=== PATIENT | male | born 1965 | race Caucasian/White ===

== ENCOUNTER 2017-12-23 13:22 | Inpatient (IN) | payer OTHER ==
[~2017-12-23] VITALS: Ht 185.4 cm; Wt 137.0 kg
[2017-12-23 13:32] VITALS: Ht 185.4 cm; Wt 137.0 kg
[2017-12-23 16:33] LABS: RED CELL DISTRIBUTION WIDTH 13.4 % (11.5-14.5)
[2017-12-23 16:38] LABS: CALCIUM 7.6 mg/dL (8.5-10.1); CARBON DIOXIDE 27.9 mmol/L (21-32); CHLORIDE SERUM 96 mmol/L (98-107); CREATININE SERUM 0.9 mg/dL (0.7-1.3); GFR1 > 60 mL/min; GLUCOSE SERUM 299 mg/dL (74-106); POTASSIUM SERUM 3.2 mmol/L (3.5-5.1); SODIUM SERUM 133 mmol/L (136-145)
[2017-12-23 16:47] LABS: PLATELET COUNT 522 x10^3mcL (130-400)
[2017-12-23 16:49] LABS: ALKALINE PHOSPHATASE 124 U/L (46-116); ALT/SGPT 10 U/L (16-63); AST/SGOT 20 U/L (15-37); BILIRUBIN TOTAL 0.9 mg/dL (0.20-1.00)
[2017-12-23 16:50] LABS: CK-MB < 0.5 ng/mL (0-3.6); CREATINE KINASE 23 U/L (39-308)
[2017-12-23 16:51] LABS: FREE T4 1.27 ng/dL (0.76-1.46); T4(THYROXINE) 5.5 ug/dL (4.7-13.3)
[2017-12-23 16:58] LABS: ALBUMIN 1.5 g/dL (3.4-5.0); TOTAL PROTEIN, SERUM 6.1 g/dL (6.4-8.2)
[2017-12-23 17:01] LABS: T3 TOTAL 0.7 ng/mL
[2017-12-23 17:05] LABS: BAND NEUTROPHIL 3 % (0-10); BASOPHIL 0 % (0-2); MONOCYTE 7 % (0-7); SEGMENTED NEUTROPHILS 82 % (37-75)
[2017-12-23 17:06] LABS: rbc morphology (normal/abnorm) ABNORMAL (NORMAL)
[2017-12-23 17:09] LABS: C REACTIVE PROTEIN 19.7 mg/dL (<=0.9)
[2017-12-23 17:19] LABS: ERYTHROCYTE SED RATE 103 mm/hr (0-20)
[2017-12-23 19:47] VITALS: BP 132/83
[2017-12-23 20:03] LABS: PHOSPHOROUS 2.5 mg/dL (2.5-4.9)
[2017-12-23 20:04] LABS: CHOLESTEROL/HDL RATIO 4.9
[2017-12-23] MEDS ORDERED: GLU500 PO (23:02)
[2017-12-23] MEDS ORDERED: GLUCOTROL5 MG PO (23:03)
[2017-12-23] MEDS ORDERED: LISINOPRIL20 MG PO (23:04)
[2017-12-23 23:52] LABS: microscopic required? YES; urine erythrocyte TRACE (NEGATIVE)
[2017-12-24 00:05] LABS: AMPHETAMINE QUAL UR NONE DETECTED (See below)
[2017-12-24 05:23] VITALS: BP 140/77
[2017-12-24 07:22] LABS: BASOPHIL % 0.2 % (0-2); RED CELL DISTRIBUTION WIDTH 14.1 % (11.5-14.5)
[2017-12-24 07:30] LABS: PLATELET COUNT 544 x10^3mcL (130-400)
[2017-12-24 08:18] LABS: CALCIUM 8.3 mg/dL (8.5-10.1); CHLORIDE SERUM 100 mmol/L (98-107); CREATININE SERUM 0.8 mg/dL (0.7-1.3); GFR1 > 60 mL/min; GLUCOSE SERUM 180 mg/dL (74-106); POTASSIUM SERUM 3.2 mmol/L (3.5-5.1); SODIUM SERUM 135 mmol/L (136-145)
[2017-12-24 08:41] LABS: BAND NEUTROPHIL 4 % (0-10); BASOPHIL 0 % (0-2); MONOCYTE 7 % (0-7); SEGMENTED NEUTROPHILS 78 % (37-75)
[2017-12-24 08:42] LABS: PLATELET MORPHOLOGY PLATELETS INCREASED; rbc morphology (normal/abnorm) ABNORMAL (NORMAL)
[2017-12-24 09:46] VITALS: BP 140/75
[2017-12-24 13:37] VITALS: BP 140/77
[2017-12-24 17:36] VITALS: BP 160/81
[2017-12-24 21:25] VITALS: BP 132/72
[2017-12-25 05:41] LABS: RED CELL DISTRIBUTION WIDTH 13.5 % (11.5-14.5)
[2017-12-25 05:48] VITALS: BP 129/73
[2017-12-25 06:08] LABS: CALCIUM 7.5 mg/dL (8.5-10.1); CARBON DIOXIDE 28.5 mmol/L (21-32); CHLORIDE SERUM 100 mmol/L (98-107); CREATININE SERUM 0.9 mg/dL (0.7-1.3); GFR1 > 60 mL/min; GLUCOSE SERUM 224 mg/dL (74-106); MAGNESIUM 1.6 mg/dL (1.8-2.4); PHOSPHOROUS 3.7 mg/dL (2.5-4.9); SODIUM SERUM 133 mmol/L (136-145)
[2017-12-25 07:24] LABS: PLATELET COUNT 531 x10^3mcL (130-400)
[2017-12-25 09:45] VITALS: BP 122/59
[2017-12-25 13:51] VITALS: BP 140/71
[2017-12-25 18:21] VITALS: BP 157/72
[2017-12-25 18:34] LABS: BAND NEUTROPHIL 4 % (0-10); SEGMENTED NEUTROPHILS 78 % (37-75)
[2017-12-25 18:35] LABS: MONOCYTE 5 % (0-7); PLATELET MORPHOLOGY LARGE PLATELET SEEN; rbc morphology (normal/abnorm) NORMAL (NORMAL)
[2017-12-25 20:44] VITALS: BP 148/59
[2017-12-26 05:45] VITALS: BP 140/86
[2017-12-26 08:41] LABS: RED CELL DISTRIBUTION WIDTH 13.7 % (11.5-14.5)
[2017-12-26 08:49] LABS: PLATELET COUNT 543 x10^3mcL (130-400)
[2017-12-26 09:10] LABS: CALCIUM 7.9 mg/dL (8.5-10.1); CARBON DIOXIDE 28.9 mmol/L (21-32); CHLORIDE SERUM 98 mmol/L (98-107); GFR1 > 60 mL/min; GLUCOSE SERUM 276 mg/dL (74-106); MAGNESIUM 1.6 mg/dL (1.8-2.4); POTASSIUM SERUM 3.6 mmol/L (3.5-5.1); SODIUM SERUM 133 mmol/L (136-145)
[2017-12-26 09:19] LABS: ATYPICAL LYMPH 1 %; BAND NEUTROPHIL 1 % (0-10); MONOCYTE 2 % (0-7); SEGMENTED NEUTROPHILS 91 % (37-75)
[2017-12-26 09:20] LABS: rbc morphology (normal/abnorm) ABNORMAL (NORMAL)
[2017-12-26 10:18] VITALS: BP 144/79
[2017-12-26] MEDS ORDERED: AUGMENTIN 875-1 EACH PO (12:24)
[2017-12-26] MEDS ORDERED: BACTRIM DS1 TAB PO (12:26)
[2017-12-26] MEDS ORDERED: ZESTRIL20 MG PO (12:27)
[2017-12-26] MEDS ORDERED: APAP/HYDROCODON1 T13 PO (12:49)
[2017-12-26] MEDS ORDERED: METFORMIN500 M1 GT (12:52)
== END 2017-12-26 13:50 | disposition left against medical advice (07) | DRG 871 ==
LOC: ED 13:22 → DU 18:36
PROVIDERS: Family Medicine; Specialist
PROC: 0J993ZZ Drainage of Buttock Subcutaneous Tissue and Fascia, Percutaneous Approach (ICD-10-PCS; principal; 2017-12-24)
DX: A41.9 Sepsis, unspecified organism (principal); N17.0 Acute kidney failure with tubular necrosis; E43 Unspecified severe protein-calorie malnutrition; L02.31 Cutaneous abscess of buttock; D68.59 Other primary thrombophilia; E87.3 Alkalosis; E87.1 Hypo-osmolality and hyponatremia; R65.20 Severe sepsis without septic shock; E11.65 Type 2 diabetes mellitus with hyperglycemia; Z79.84 Long term (current) use of oral hypoglycemic drugs; E86.0 Dehydration; E87.8 Other disorders of electrolyte and fluid balance, not elsewhere classified; E87.6 Hypokalemia; I10 Essential (primary) hypertension; R58 Hemorrhage, not elsewhere classified; Z68.39 Body mass index [BMI] 39.0-39.9, adult; D47.3 Essential (hemorrhagic) thrombocythemia; D64.9 Anemia, unspecified
CPT/HCPCS: 20206; 36600; 82962; 83880; 84439; C1729; C9113; J1815; J1885; J2001; J2270; J2543; J3370; J3475; J3480; J3490; J7030; Q0092; Q9967